=== PATIENT | female | born 1990 | race Caucasian/White ===

== ENCOUNTER 2017-12-31 06:27 | Day surgery (SDC) | payer OTHER ==
[~2017-12-31] VITALS: Ht 170.2 cm; Wt 69.4 kg
[2017-12-31 06:54] VITALS: BP 127/81
[2017-12-31 11:15] VITALS: BP 102/64
== END 2017-12-31 11:10 | disposition home or self-care (01) ==
LOC: DS 06:27 → OR 07:30 → GI 07:30 → DS 11:10
PROVIDERS: Internal Medicine Gastroenterology
PROC: 0DBB8ZX Excision of Ileum, Via Natural or Artificial Opening Endoscopic, Diagnostic (ICD-10-PCS; principal; 2017-12-31 07:30)
DX: K63.3 Ulcer of intestine (principal); K50.90 Crohn's disease, unspecified, without complications
CPT/HCPCS: 45378; J1200; J1610; J2250; J2310; J3010; J3490

== ENCOUNTER 2019-07-17 00:10 | Emergency (ER) | payer OTHER ==
[~2019-07-17] VITALS: Ht 170.2 cm; Wt 71.2 kg
[2019-07-17 00:15] VITALS: Ht 170.2 cm; Wt 71.2 kg
[2019-07-17 03:19] VITALS: BP 110/44
== END 2019-07-17 03:19 | disposition home or self-care (01) ==
LOC: ED 00:10
DX: J02.9 Acute pharyngitis, unspecified (principal)
CPT/HCPCS: 87804; J1885; Q0162